=== PATIENT | male | born 1960 | race Caucasian/White ===

== ENCOUNTER → 2016-08-29 | Outpatient (CLI) | payer OTHER ==
[2016-08-29 09:01] LABS: ABSOLUTE NEUTROPHILS 3.9 thou/uL (1.4-8.2); EOSINOPHILS 3.9 % (0.0-3.0); HEMATOCRIT 49.7 % (42.0-52.0); HEMOGLOBIN 16.9 gm/dL (14.0-18.0); LYMPHOCYTES 28.6 % (24.0-44.0); MCH 29.3 pg (26.0-34.0); MCV 86.2 fL (80.0-100.0); MONOCYTES 7.4 % (1.0-8.0); PLATELET COUNT 286 thou/uL (150-400); POLYS 59.1 % (36.0-66.0); RBC 5.76 mil/uL (4.50-6.00); RDW 13.6 % (10.5-14.5); WBC 6.7 thou/uL (4.0-11.0)
[2016-08-29 09:05] LABS: MANUAL DIFF NO
[2016-08-29 09:06] LABS: ANION GAP 9 mmol/L (7-16); BUN 14 mg/dL (7-18); CALCIUM 9.2 mg/dL (8.5-10.1); CASTS None Seen /LPF (None Seen); CHLORIDE 105 mmol/L (98-107); CO2 27 mmol/L (21-32); CREATININE 1.2 mg/dL (0.6-1.3); CRYSTALS None Seen /LPF (None Seen); GLUCOSE 97 mg/dL (70-99); POTASSIUM 4.1 mmol/L (3.5-5.1); SODIUM 141 mmol/L (136-145); SQUAMOUS None Seen /LPF (0-3); URINE RBC None Seen /HPF (0-2); URINE WBC-REFLEX 0-5 Rare /HPF (0-5)
[2016-08-29 09:12] LABS: ALKALINE PHOSPHATASE 65 U/L (46-116); CHOLESTEROL 227 mg/dL (<200); HDL CHOLESTEROL 55 mg/dL (>40); LDL CHOLESTEROL 152 mg/dL (<100); SGOT 19 U/L (15-37); SGPT 38 U/L (30-65); TC:HDL 4.1 Ratio (Not establshd); TOTAL BILIRUBIN 1.6 mg/dL (<0.1-1.0); TOTAL PROTEIN 7.6 g/dL (6.4-8.2); TRIGLYCERIDE 102 mg/dL (<150); VLDL 20 mg/dL (<40)
[2016-08-29 09:17] LABS: URINE BILIRUBIN NEGATIVE (Negative); URINE BLOOD NEGATIVE (Negative); URINE COLOR YELLOW; URINE GLUCOSE-RANDOM* NEGATIVE (Negative); URINE KETONES NEGATIVE (Negative); URINE LEUKOCYTES-REFLEX NEGATIVE (Negative); URINE PROTEIN (DIPSTICK) NEGATIVE (Negative); URINE UROBILINOGEN 0.2 E.U./dl (0.2-1.0)
[2016-09-07 13:42] LABS: PSA 2.4; TSH 2.36
== END ==
LOC: ULTRA 08:19
PROVIDERS: Family Medicine
DX: Z00.00 Encounter for general adult medical examination without abnormal findings (principal); R10.11 Right upper quadrant pain

== ENCOUNTER → 2017-10-05 | Outpatient (CLI) | payer OTHER | LOC: CAT 07:49 | DX: Z13.6 Encounter for screening for cardiovascular disorders (principal) ==